=== PATIENT | male | born 2000 | race Caucasian/White ===

== ENCOUNTER 2022-12-11 08:51 | Emergency (ER) | payer BC, SELFPAY ==
[2022-12-11 08:57] VITALS: BP 159/83; PULSE 71; RESP 14; TEMP 36.5; O2SAT 98; BMI 33.2
--- NOTE | 2022-12-11 09:01 | ED_ITS ---
HPI - Wound/Laceration General Time Seen by Provider: 09:01 Date Seen: 12/11/22 Chief Complaint: Laceration/Wound Stated Complaint: left arm laceration Time Seen by Provider: 12/11/22 08:57 Source: patient and RN notes reviewed Mode of arrival: ambulatory Limitations: no limitations History of Present Illness HPI narrative: Patient is a 22-year-old male coming in with a cut sustained on the left forearm while he was cutting down boxes. He was using a blade, breaking down boxes. He states it hurts when he moves his middle finger on this hand. He put a tourniqu et on with a plastic bag that he tied off above the laceration. He states it was bleeding quite a bit. He is unsure of his tetanus. His whole or arm starting to feel a bit numb presumably from the tourniquet. Onset (ago): minute(s) Context: accidental Related Data Home Medications Medication Instructions Recorded Confirmed No Known Home Medications 12/11/22 12/11/22 Allergies Allergy/AdvReac Type Severity Reaction Status Date / Time No Known Drug Allergies Allergy Verified 12/11/22 08:56 Review of Systems Narrative: As per HPI. Exam Const: Vital Signs, click to edit/add: Vital Signs - 24 hr 12/11/22 08:57 Temperature 97.7 F Pulse Rate [Pulse Oximeter] 71 Respiratory Rate 14 Blood Pressure [Ri ght Upper Arm] 159/83 H Pulse Oximetry 98 Oxygen Delivery Me thod Room Air Patient is a 22-year-old male that is ambulatory into the ED of his own accord, he is alert, interactive, no apparent distress. He has a 1.5 cm obliquely situated wound on his mid flexor forearm. Wound edges are gaping. The tourniquet was removed, no bleeding at this time once the tourniquet was taken down. I can see that this wound is into the subcutaneous tissue with the fat globules. 5 mL of 0.25% bupivacaine was infiltrate d locally around the wound. Wound was clean and explored. Could see some fibers of muscle body. Patient was complaining before and after anesthesia that he was having pain with flexion of his right 3rd finger. He could demonstrate flexion but was having significant pain limiting my exam. Did stop at this point and page Orthopedics. Dr. Joiner reportedly came over, I was doing a different procedure at that time, he evaluated patient and stated he was appropriate for closure, nothing further needed to be done. By this time, Anesthesia had worn off in did need to venus nject with 5 mL of the bupivacaine again. Anesthesia was achieved with this. Documenting provider has reviewed patient's vital signs: yes Course Vital Signs Vital signs: Initial Vital Signs Temperature 97.7 F 12/11/22 08:57 Temperature Source Temporal Artery Scan 12/11/22 08:57 Pulse Rate 71 12/11/22 08:57 Pulse Rhythm Regular 12/11/22 08:57 Respiratory Rate 14 12/11/22 08:57 Blood Pressure 159/83 H 12/11/22 08:57 Blood Pressure Mean 108 H 12/11/22 08:57 Pulse Oximetry 98 12/11/22 08:57 Oxygen Delivery Method Room Air 12/11/22 08:57 Vital Signs Temperature 97.7 F 12/11/22 08:57 Pulse Rate 71 12/11/22 08:57 Respiratory Rate 14 12/11/22 08:57 Blood Pressure 159/83 H 12/11/22 08:57 Pulse Oximetry 98 12/11/22 08:57 Oxygen Delivery Method Room Air 12/11/22 08:57 Temperature 97.7 F 12/11/22 08:57 Pulse Rate 71 12/11/22 08:57 Respiratory Rate 14 12/11/22 08:57 Blood Pressure 159/83 H 12/11/22 08:57 Pulse Oximetry 98 12/11/22 08:57 Oxygen Delivery Method Room Air 12/11/22 08:57 Discharge Plan Discharge Clinical Impression: Laceration of forearm, left Qualifiers: Encounter type: initial encounter Qualified Code(s): S51.812A - Laceration without foreign body of left forearm, initial encounter Patient Disposition: Home, Self-Care Condition: Stable Instructions: Care For Your Stitches (ED), Laceration (ED) Additional Instructions: Can leave current dressing on until tomorrow but should be okay to remove tonight if you would like to shower. You may shower with this wound but otherwise keep it clean and dry. Use bandages with bacitracin when you are at worker out in public. Need to schedule a clinic follow-up in about 10-14 days to assess the wound for suture removal. If there is any concern for infection, please seek re-evaluation. Symptoms of this are in the outlined handouts given to you. We did update your tetanus with a Tdap today. You certainly can use some ice on this forearm over the next couple days to help minimize swelling. It is fine to use Tylenol and/or ibuprofen per bottle directions for any discomfort. Limiting use of this arm for the next 24-48 hours will help decreas e pain, swelling and further bleeding. Prescriptions: No Action No Known Home Medications Follow Up/Referrals: Provider,Not a Local [Primary Care Provider] - Stand Alone Forms: [facility] Info Instructions Procedures Laceration Laceration 1: Pre procedure diagnosis: Left forearm laceration Post procedure diagnosis: same Site marking: not applicable Name of person performing procedure: Ligia Torres Site: upper extremity Side (If applicable): left Size (cm): 1.5 Description: linear Depth: simple, single layer and involves muscle layer (Few superficial fibers do appear to have been cut.) Local Anesthetic: bupivacaine 0.25% Amount of anesthesia used (mL): 10 Pre-repair: wound explored and irrigated extensively Skin layer closed with: other (Ethilon) Size (cm): 3-0 Number of sutures: 5 Technique: simple, interrupted Wound cleansing: soap Estimated blood loss (if any): less than 5mls Conclusion: patient tolerated procedure
[2022-12-11] MEDS: TETANUS/DIPHTH/PERTUSSIS 0.5 ML SYRINGE IM (10:20)
== END 2022-12-11 10:37 | disposition home or self-care (01) ==
PROVIDERS: Emergency Provider Family Medicine
DX: S51.812A Laceration without foreign body of left forearm, initial encounter (principal); W26.0XXA Contact with knife, initial encounter
CPT/HCPCS: 12001; 90471; 90715; 99283

== ENCOUNTER 2023-04-25 15:57 | Emergency (ER) | payer BC, SELFPAY ==
[2023-04-25 16:18] VITALS: BP 147/83; PULSE 114; RESP 20; TEMP 39.1; O2SAT 98; BMI 32.5
[2023-04-25] MEDS: ACETAMINOPHEN 500 MG TABLET 1000 MG PO (16:33)
[2023-04-25] MEDS: ONDANSETRON ODT 4 MG TAB PO (16:33)
[2023-04-25 17:14] LABS: PCR FLU A Negative PCR FLU A (Negative); PCR FLU B POSITIVE PCR FLU B (Negative); PCR RSV Negative PCR RSV (Negative); SARS PCR* Negative SARS-CoV-2 (Negative)
[2023-04-25 17:26] VITALS: RESP 14; TEMP 39.3; O2SAT 98
[2023-04-25 17:50] VITALS: BP 147/83; PULSE 114; RESP 20; TEMP 39.1
--- NOTE | 2023-04-25 18:28 | ED_ITS ---
HPI - General Adult General Chief complaint: Fever Stated complaint: Cough, high temp, sinus pain, vomit Time Seen by Provider: 04/25/23 17:26 History of Present Illness HPI narrative: Patient is a 22-year-old male who presents for evaluation of cough, fevers, congestion. His daughter has been sick with same symptoms for few days. He tells me that a couple of days ago he was having problems with vomiting although that has essentially resolved. Has not taken anything for fever today. He has been taking Mucinex. General health is good. He does not smoke. Related Data Home Medications Medication Instructions Recorded Confirmed No Known Home Medications 12/11/22 12/11/22 Allergies Allergy/AdvReac Type Severity Reaction Status Date / Time No Known Drug Allergies Allergy Verified 12/11/22 08:56 Review of Systems Status of ROS: Reports: 6 or more systems reviewed and unremarkable except as noted in History and below [facility] Social History Smoking Status: Never smoker How often do you have a drink containing alcohol: never How often do you have six or more drinks on one occasion: Never AUDIT-C Alcohol total score: 0 Non-prescribed substance use: denies use Exam Narrative: Exam Narrative: Vital signs as noted above. In general, an alert, well-appearing patient. Head: Normocephalic, atraumatic. Eyes: Pupils are equal reactive. Extraocular movements are full. Conjunctivae are normal. ENT: Mucous membranes are moist. Throat is mildly edematous, tonsils are large but there is no significant edema no exudate. TMs normal bilaterally. Neck: Supple without lymphadenopathy. Heart: Mildly tachycardic, regular. Lungs: Clear bilaterally. No increased work of breathing, crackles or wheezes. Neurologic: Patient is alert and oriented to person and place. Speech is fluent. Face is symmetric. Moves all extremities equally. Affect: Normal. Skin: Warm and dry. Well perfused. Const: Vital Signs, click to edit/add: Vital Signs - 24 hr 04/25/23 16:18 04/25/23 17:26 04/25/23 17:50 Temperature 102.3 F H 102.8 F H 102.3 F H Pulse Rate [Pulse Oximeter] 114 H 114 H Respiratory Rate 20 14 20 Blood Pressure [Ri ght Upper Arm] 147/83 H 147/83 H Pulse Oximetry 98 98 Oxygen Delivery Me thod Room Air Documenting provider has reviewed patient's vital signs: yes Course Course ED Course: Viral swab is positive for influenza B. He had some Zofran here, declines the need for further medication at home for nausea. He also had Tylenol given his temp of a 102?. Discussed the natural course of influenza, expect improvement over the next 7-10 days. Return for acute worsening difficulty breathing or other significant symptoms. Otherwise see primary care if not improved in the expected time frame. Ibuprofen and/or Tylenol as needed for fevers and aches. Vital Signs Vital signs: Initial Vital Signs Temperature 102.3 F H 04/25/23 16:18 Temperature Source Temporal Artery Scan 04/25/23 16:18 Pulse Rate 114 H 04/25/23 16:18 Pulse Rhythm Regular 04/25/23 16:18 Respiratory Rate 20 04/25/23 16:18 Blood Pressure 147/83 H 04/25/23 16:18 Blood Pressure Mean 104 04/25/23 16:18 Blood Pressure Position Sitting 04/25/23 16:18 Pulse Oximetry 98 04/25/23 16:18 Oxygen Delivery Method Room Air 04/25/23 16:18 Vital Signs Temperature 102.3 F H 04/25/23 16:18 Pulse Rate 114 H 04/25/23 16:18 Respiratory Rate 20 04/25/23 16:18 Blood Pressure 147/83 H 04/25/23 16:18 Pulse Oximetry 98 04/25/23 16:18 Oxygen Delivery Method Room Air 04/25/23 16:18 Temperature 102.3 F H 04/25/23 17:50 Pulse Rate 114 H 04/25/23 17:50 Respiratory Rate 04/25/23 17:50 Blood Pressure 147/83 H 04/25/23 17:50 Pulse Oximetry 98 04/25/23 17:26 Oxygen Delivery Method Room Air 04/25/23 16:18 Medications Administered Medications: Discontinued Medications Generic Name Dose Route Start Last Admin Trade Name Freq PRN Reason Stop Dose Admin Acetaminophen 1,000 mg 04/25/23 16:22 04/25/23 16:33 Acetaminophen 500 Mg Tablet PO 04/25/23 16:23 1,000 mg ONCE ONE Administration Ondansetron HCl 4 mg 04/25/23 16:22 04/25/23 16:33 Ondansetron Odt 4 Mg Tab PO 04/25/23 16:23 4 mg ONCE ONE Administration Medical Decision Making Lab Data Labs: Lab Results 04/25/23 Range/Units 16:25 SARS-CoV-2 (PCR) Negative SARS-CoV-2 (Negative) Influenza Type A (PCR) Negative PCR FLU A (Negative) Influenza Type B (PCR) POSITIVE PCR FLU B A (Negative) RSV (PCR) Negative PCR RSV (Negative) Discharge Plan Discharge Clinical Impression: Influenza B Patient Disposition: Home, Self-Care Condition: Stable Instructions: Influenza (DC) Additional Instructions: Ibuprofen 400 mg plus or minus and tylenol 1000 mg 3 times daily as needed for fever or body aches. Anticipate gradual improvement over the next 7-10 days. Return for acute worsening symptoms. See primary care if not gradually improved in that time frame. Prescriptions: No Action No Known Home Medications Follow Up/Referrals: Provider,Not a Local [Primary Care Provider] - Stand Alone Forms: [facility] Info Instructions
== END 2023-04-25 17:52 | disposition home or self-care (01) ==
PROVIDERS: Emergency Provider Emergency Medicine
DX: J10.1 Influenza due to other identified influenza virus with other respiratory manifestations (principal)
CPT/HCPCS: 87631; 99283; A9270